=== PATIENT | male | born 1980 | race Caucasian/White ===

== ENCOUNTER 2020-08-01 13:08 | Outpatient (REF) | payer OTHER, SELFPAY | END 2020-08-01 13:09 | disposition home or self-care (01) | LOC: HO.LAB 13:08 | PROVIDERS: Visit Provider Internal Medicine | DX: Z20.828 Contact with and (suspected) exposure to other viral communicable diseases (principal) | CPT/HCPCS: C9803; U0003 ==

== ENCOUNTER 2020-08-15 16:03 | Outpatient (REF) | payer OTHER, SELFPAY | END 2020-08-15 16:04 | disposition home or self-care (01) | LOC: HO.LAB 16:03 | PROVIDERS: Visit Provider Internal Medicine | DX: Z20.828 Contact with and (suspected) exposure to other viral communicable diseases (principal) | CPT/HCPCS: C9803; U0003 ==

== ENCOUNTER 2020-08-23 15:46 | Outpatient (REF) | payer OTHER, SELFPAY | END 2020-08-23 15:47 | disposition home or self-care (01) | LOC: HO.LAB 15:46 | PROVIDERS: Visit Provider Internal Medicine | DX: Z20.828 Contact with and (suspected) exposure to other viral communicable diseases (principal) | CPT/HCPCS: 36415; C9803; U0003 ==